=== PATIENT | male | born 1975 | race Caucasian/White ===

== ENCOUNTER → 2019-10-08 14:57 | Outpatient (BNVA) | payer MEDICARE, MEDICAID, SELFPAY | PROVIDERS: Family Provider Nurse Practitioner Family; PCP Nurse Practitioner Family; Visit Provider Specialist | DX: G40.119 Localization-related (focal) (partial) symptomatic epilepsy and epileptic syndromes with simple partial seizures, intractable, without status epilepticus (principal) | CPT/HCPCS: 99213 ==

== ENCOUNTER 2019-10-08 16:40 | Outpatient (CLI) | payer MEDICARE, MEDICAID, SELFPAY ==
[2019-10-08 17:03] LABS: Basophils # 0.1 10^3/uL (0.0-0.1); Basophils % 0.5 %; Eosinophils # 0.1 10^3/uL (0.0-0.8); Hematocrit 50.3 % (42.0-52.0); Hemoglobin 16.4 g/dL (11.7-16.6); Lymphocytes # 2.6 10^3/uL (0.8-4.8); Lymphocytes % 27.3 %; Mean Corpuscular HGB Conc 32.6 g/dL (30.0-36.0); Mean Corpuscular Volume 107.5 fL (80-94); Monocytes # 0.8 10^3/uL (0.2-0.9); Neutrophils # 5.9 10^3/uL (1.8-7.7); Neutrophils % 62.9 %; Nucleated Red Blood Cells % 0 %; Platelet Count 225 10^3/cmm (130-400); Red Blood Count 4.68 10^6/uL (4.1-5.3); Red Cell Distribution Width 12.1 % (12.1-15.1); White Blood Count 9.4 10^3/uL (4.0-10.0)
== END 2019-10-08 16:41 | disposition home or self-care (01) ==
LOC: LAB 16:41
PROVIDERS: Specialist; PCP Nurse Practitioner Family; Visit Provider Nurse Practitioner Family
DX: Z00.00 Encounter for general adult medical examination without abnormal findings (principal)
CPT/HCPCS: 85025

== ENCOUNTER 2019-10-10 13:12 | Outpatient (CLI) | payer MEDICARE, MEDICAID, SELFPAY ==
[2019-10-10 15:00] LABS: Alanine Aminotransferase 28 U/L (0-41); Thyroid Stimulating Hormone 1.09 uIU/mL (0.27-4.20); Vitamin B12 413 pg/mL (232-1245)
[2019-10-10 22:03] LABS: Carbamazepine Tegretol 9.3 ug/mL (4.0-12.0)
[2019-10-14 09:00] LABS: Methylmalonic Acid 152 nmol/L (87-318)
== END 2019-10-10 13:13 | disposition home or self-care (01) ==
LOC: LAB 13:12
PROVIDERS: PCP Nurse Practitioner Family; Visit Provider Specialist
DX: Z00.00 Encounter for general adult medical examination without abnormal findings (principal); R56.9 Unspecified convulsions
CPT/HCPCS: 36415; 80156; 82607; 83921; 84443; 84460

== ENCOUNTER → 2020-07-16 14:27 | Outpatient (BNVA) | payer MEDICARE, MEDICAID, SELFPAY | PROVIDERS: PCP Nurse Practitioner Family; Visit Provider Specialist | DX: G40.119 Localization-related (focal) (partial) symptomatic epilepsy and epileptic syndromes with simple partial seizures, intractable, without status epilepticus (principal); G40.909 Epilepsy, unspecified, not intractable, without status epilepticus; F17.210 Nicotine dependence, cigarettes, uncomplicated | CPT/HCPCS: 99214 ==

== ENCOUNTER → 2020-10-13 15:07 | Outpatient (BNVA) | payer MEDICARE, MEDICAID, SELFPAY | PROVIDERS: PCP Nurse Practitioner Family; Visit Provider Specialist | DX: G40.119 Localization-related (focal) (partial) symptomatic epilepsy and epileptic syndromes with simple partial seizures, intractable, without status epilepticus (principal); G40.909 Epilepsy, unspecified, not intractable, without status epilepticus; F20.0 Paranoid schizophrenia; F06.2 Psychotic disorder with delusions due to known physiological condition | CPT/HCPCS: 36415; 80053; 80156; 85025; 99214 ==

== ENCOUNTER 2020-10-13 16:12 | Outpatient (CLI) | payer MEDICARE, MEDICAID, SELFPAY ==
[2020-10-13 16:49] LABS: Basophils % 0.5 %; Eosinophils # 0.1 10^3/uL (0.0-0.8); Eosinophils % 1.2 %; Hematocrit 45.1 % (42.0-52.0); Hemoglobin 16.1 g/dL (11.7-16.6); Lymphocytes # 2.2 10^3/uL (0.8-4.8); Lymphocytes % 27.1 %; Mean Corpuscular HGB Conc 35.7 g/dL (30.0-36.0); Mean Corpuscular Hemoglobin 34.8 pg (28.0-34.0); Mean Corpuscular Volume 97.6 fL (80-94); Mean Platelet Volume 9.6 fL (7.4-10.4); Monocytes # 0.6 10^3/uL (0.2-0.9); Monocytes % 7.2 %; Neutrophils # 5.19 10^3/uL (1.8-7.7); Neutrophils % 63.6 %; Nucleated Red Blood Cells % 0 %; Platelet Count 177 10^3/cmm (130-400); Red Blood Count 4.62 10^6/uL (4.1-5.3); Red Cell Distribution Width 11.9 % (12.1-15.1); White Blood Count 8.2 10^3/uL (4.0-10.0)
[2020-10-13 17:13] LABS: Alanine Aminotransferase 22 U/L (0-41); Alkaline Phosphatase 36 IU/L (40-130); Anion Gap 13.5 (5-19); Aspartate Amino Transferase 21 U/L (0-40); Blood Urea Nitrogen 9 mg/dL (6-20); Calcium 8.6 mg/dL (8.5-10.5); Carbamazepine Tegretol 10.3 ug/mL (4.0-12.0); Carbon Dioxide 25 mmol/L (22-29); Chloride 104 mmol/L (98-107); Globulin 2.2 g/dL (1.3-4.6); Glucose 118 mg/dL (65-115); Osmolality Calculated 288 mOsm/kg (285-295); Potassium 3.5 mmol/L (3.5-5.1); Sodium 139 mmol/L (136-145); Total Bilirubin 0.3 mg/dL (0.15-1.2); Total Protein 6.2 g/dL (6.6-8.7)
== END 2020-10-13 16:13 | disposition home or self-care (01) ==
LOC: LAB 16:17
PROVIDERS: PCP Nurse Practitioner Family; Visit Provider Specialist
DX: G40.119 Localization-related (focal) (partial) symptomatic epilepsy and epileptic syndromes with simple partial seizures, intractable, without status epilepticus (principal)
CPT/HCPCS: 36415; 80053; 80156; 85025

== ENCOUNTER → 2021-04-06 14:36 | Outpatient (BNVA) | payer MEDICARE, MEDICAID, SELFPAY | PROVIDERS: PCP Nurse Practitioner Family; Visit Provider Specialist | DX: G40.119 Localization-related (focal) (partial) symptomatic epilepsy and epileptic syndromes with simple partial seizures, intractable, without status epilepticus (principal); F20.9 Schizophrenia, unspecified; F17.290 Nicotine dependence, other tobacco product, uncomplicated | CPT/HCPCS: 99214 ==

== ENCOUNTER → 2021-09-02 14:49 | Outpatient (BNVA) | payer MEDICARE, MEDICAID, SELFPAY | PROVIDERS: PCP Nurse Practitioner Family; Visit Provider Specialist | DX: G40.119 Localization-related (focal) (partial) symptomatic epilepsy and epileptic syndromes with simple partial seizures, intractable, without status epilepticus (principal); F20.9 Schizophrenia, unspecified | CPT/HCPCS: 99213; 99214 ==

== ENCOUNTER 2021-10-06 11:07 | Outpatient (CLI) | payer MEDICARE, MEDICAID, SELFPAY ==
--- NOTE | 2021-10-06 11:21 | XR_ITS ---
WS: [id number] Exam: XR thoracic spine 2V [id number] Date/Time of Exam: 10/06/2021 11:25 AM Reason For Exam: WEAKNESS OF BOTH LEGS Mild wedge deformity of T8 that might represent an old low-grade insufficiency compression fracture. No posterior displacement. No other sign of fracture. There is spondylosis. Increased kyphosis and os teopenia. No significant scoliosis. XR/XR thoracic spine 2V [id number] IMPRESSION: 1. Mild wedge deformity of T8 that may represent an old mild insufficiency comp ression fracture. 2. Degenerative changes and osteopenia.
--- NOTE | 2021-10-06 11:44 | XR_ITS ---
WS: [id number] Exam: XR lumbar spine 2-3V* [id number] Date/Time of Exam: 10/06/2021 11:44 AM Reason For Exam: WEAKNESS OF BOTH LEGS No fracture or dislocation noted. Mild degenerative disc narrowing at L1-2, L3-4 and L5-S1. Mild spon dylosis. Facet DJD at L4-5 and L5-S1. XR/XR lumbar spine 2-3V* [id number] IMPRESSION: 1. Degenerative changes as detailed above. 2. No fracture or malalignment.
== END 2021-10-06 11:08 | disposition home or self-care (01) ==
PROVIDERS: PCP Nurse Practitioner Family; Visit Provider Nurse Practitioner Family
DX: M47.894 Other spondylosis, thoracic region (principal); M47.896 Other spondylosis, lumbar region
CPT/HCPCS: 72070; 72100

== ENCOUNTER 2022-02-22 11:57 | Outpatient (CLI) | payer MEDICARE, MEDICAID, SELFPAY ==
--- NOTE | 2022-02-22 13:10 | XRR_ITS ---
PROCEDURE INFORMATION: Exam: XR Left Knee Exam date and time: 02/22/2022 1:11 PM Age: 46 years old Clinical indication: Pain; Patient HX: PT stated that he was cleaning his room and turned and heard his left knee pop several times. PT states that his knee has been hurting since. X 5 wks; Additional info: L knee joint pain TECHNIQUE: Imaging protocol: Radiologic exam of the Left knee. Views: 3 views. COMPARISON: No relevant prior studies available. FINDINGS: Bones/joints: Negative for acute bony abnormality Soft tissues: Normal. XR/XR knee LT 3V* [id number] IMPRESSION: No acute findings.
== END 2022-02-22 11:58 | disposition home or self-care (01) ==
LOC: RAD 12:04
PROVIDERS: PCP Family Medicine; Visit Provider Family Medicine
DX: M25.562 Pain in left knee (principal)
CPT/HCPCS: 73562

== ENCOUNTER → 2022-03-08 14:31 | Outpatient (BNVA) | payer MEDICARE, MEDICAID, SELFPAY | PROVIDERS: PCP Family Medicine; Visit Provider Specialist | DX: G40.119 Localization-related (focal) (partial) symptomatic epilepsy and epileptic syndromes with simple partial seizures, intractable, without status epilepticus (principal); F20.9 Schizophrenia, unspecified | CPT/HCPCS: 99213 ==

== ENCOUNTER 2023-01-03 11:08 | Outpatient (CLI) | payer MEDICARE, MEDICAID, SELFPAY ==
--- NOTE | 2023-01-03 11:18 | XR_ITS ---
WS: [id number] XR hip LT 2-3V wo/w pel* [id number] REASON FOR EXAM: PAIN IN LEFT HIP FINDINGS: No fracture or focal bone lesion. The joint space is relatively well preserved with mild subchondral sclerosis and osteophytosis of the acetabulum. There is a subtle convexity of the humeral head and neck junction superiorly which could predispose t o femoral acetabular impingement. This finding is equivocal. No soft tissue abnormality. IMPRESSION: Equivocal finding for femoral acetabular impingement. Otherwise, no significant abnormality.
== END 2023-01-03 11:09 | disposition home or self-care (01) ==
LOC: RAD 11:15
PROVIDERS: PCP Family Medicine; Visit Provider Family Medicine
DX: M25.852 Other specified joint disorders, left hip (principal); M25.552 Pain in left hip
CPT/HCPCS: 73502

== ENCOUNTER 2023-01-17 15:17 | Outpatient (CLI) | payer MEDICARE, MEDICAID, SELFPAY ==
--- NOTE | 2023-01-17 15:24 | XR_ITS ---
WS: [id number] DEXA (DUAL ENERGY X-RAY ABSORPTIOMETRY) Bone mineral density was performed using a [employer] machine. HISTORY: COLLAPSED VERTEBRA,LUMBAR REGION/FX W/ROUTINE HEALING COMPARISON: None available. Lumbar spine BMD (L1-L4): 1.572 g/cm2 T score: 2.9 Z score: 2.5 Total hip BMD: Left: 1.107 g/cm2. T score: 0.0 Z score: 0.0 Right: 1.059 g/cm2. T score: -0.3 Z score: -0.4 10 year probability of a major osteoporotic fracture is 3.8%. IMPRESSION: NORMAL BONE MINERAL DENSITY.
== END 2023-01-17 15:18 | disposition home or self-care (01) ==
LOC: RAD 15:19
PROVIDERS: PCP Family Medicine; Visit Provider Family Medicine
DX: M81.0 Age-related osteoporosis without current pathological fracture (principal)
CPT/HCPCS: 77080

== ENCOUNTER → 2023-03-08 13:35 | Outpatient (BNVA) | payer MEDICARE, MEDICAID, SELFPAY | PROVIDERS: Visit Provider Specialist | DX: G40.119 Localization-related (focal) (partial) symptomatic epilepsy and epileptic syndromes with simple partial seizures, intractable, without status epilepticus (principal) | CPT/HCPCS: 36415; 80053; 80156; 85025; 99213 ==

== ENCOUNTER 2023-03-14 13:23 | Emergency (ER) | payer MEDICARE, MEDICAID, SELFPAY ==
[2023-03-14 13:37] VITALS: BP 157/98; PULSE 68; RESP 15; TEMP 36.7; O2SAT 98; BMI 36.6
--- NOTE | 2023-03-14 13:49 | ED_ITS ---
HPI - Headache General: Chief Complaint: Headache Stated Complaint: head pain Time Seen by Provider: 03/14/23 13:48 Source: patient Mode of arrival: ambulatory Limitations: no limitations History of Present Illness: Patient is a 47-year-old male with a history of epilepsy here with presumedly his parents for complaints of head pressure/squeezing . Parents state that patient complained of a squeezing sensation to the vertex of his scalp a few days ago but stated it has subsided by that evening. Patient states yesterday he felt it again before subsiding. Unknown how long these episodes last-patient is not a very good historian. He does not describe it as pain but moreso as a squeezing pressure. States blood pressures have been good/normal. No visual changes. No trouble with articulation/ambulation. Normal mental status per parents. No neck pain/fevers. No recent injury/trauma. No new medications. Just had lab work performed by Dr. Valle a few days ago that were normal apart from Tegretol level that was scantly elevated at 13.0 (ref range 4-12). MD elicited complaint: headache Onset (ago): day(s) Quality & Timing: squeezing Exacerbating factors: none Relieving factors: nothing Associated symptoms: Deny chest pain, confusion, fever(s), lightheadedness, nausea, rash, syncope or vomiting Treatments prior to arrival: none Review of Systems Const: Denies: fever(s) or chills Eyes: Denies: change in vision, blurry vision, photophobia, floaters or seeing flashes Card: Denies: chest pain, palpitations, irregular heart rhythm, lightheadedness, syncope or dyspnea on exertion Resp: Denies: dyspnea, productive cough or pain on inspiration GI: Denies: abdominal pain, nausea, vomiting, heartburn or diarrhea : Denies: difficulty urinating or dysuria Musc: Denies: neck pain, back pain or joint pain Skin/Breast: Denies: rash Neuro: Reports: headache(s); Denies: numbness in extremities, weakness in extremities, sensory changes, lack of coordination, difficulty walking, frequent falls, dizziness, confusion, behavioral changes, Slurred speech present or difficulty communicating thoughts PFSH ED PFSH: Social History Smoking and tobacco/nicotine status: current every day tobacco/nicotine user cigarettes Packs smoked per day: 1 Alcohol intake: current Alcohol intake frequency: 0-2 Drinks per Day Substance/Drug Use: never Physical Exam Const: COMMON NORMALS: no acute distress, patient oriented x3, no limitations, alert and well nourished GENERAL APPEARANCE: cooperative NUTRITIONAL APPEARANCE: overweight ORIENTATION/CONSCIOUSNESS: Yes awake, Yes oriented to person, Yes oriented to place and Yes oriented to time HENMT: COMMON NORMALS: normocephalic and atraumatic HEAD & SCALP: normal to inspection, normocephalic and atraumatic FACE & SINUS: normal facial exam Eye: GENERAL EYE: appearance normal, both eyes and all related structures Neck/C-Spine: COMMON NORMALS: full ROM, no lymphadenopathy, supple and no meningeal signs Resp: COMMON NORMALS: normal respiratory effort and clear to auscultation bilaterally AUSCULTATION: clear to auscultation bilaterally Cardio: COMMON NORMALS: regular rate and regular rhythm RATE: regular rate RHYTHM: regular rhythm Back/Pelvis: COMMON NORMALS: thoracic and lumbar spine normal to inspection and no thoracic nor lumbar tenderness Extremity: COMMON NORMALS: normal to inspection GENERAL: Yes normal exam except as noted Neuro: RAJINDER COMA SCALE: document GCS findings Rajinder coma scale eye opening: Spontaneous [place] coma scale verbal response: Orientated [place] coma scale motor response: [place]bey commands Rajinder coma scale total score: 15 COMMON NORMALS: patient oriented x3 SENSORIUM/ORIENTATION: Yes alert, Yes oriented to person, Yes oriented to place and Yes oriented to time MENINGEAL SIGNS: Yes no meningeal signs Skin: COMMON NORMALS: no rashes or lesions noted GENERAL SKIN EXAM: no rashes or lesions noted Course Vital Signs: Vital signs: Vital Signs Temperature 98.0 F 03/14/23 13:37 Pulse Rate 67 03/14/23 14:59 Respiratory Rate 17 03/14/23 14:59 Blood Pressure 141/89 03/14/23 14:59 Pulse Oximetry 98 03/14/23 14:59 Oxygen Delivery Me thod Room Air 03/14/23 14:59 MDM - Headache Medical Decision Making Patient has no acute neurologic complaints/deficits on history or physical exam. Vitals stable. Just had labs performed outpatient so these were not repeated. CT head today benign. Stable cyst-unchanged since 2009. Patient will be allowed discharge. Recommend follow up with PCP and/or Dr. Valle if headaches continue. Return to ED precautions given. All radiology interpretation(s) finalized by discharge Discharge Plan Discharge Patient Disposition: Home Clinical Impression: Pressure in head Condition: Stable Prescriptions: No Action albuterol sulfate [Ventolin HFA] 90 mcg/actuation HFA aerosol inhaler 2 puff INHALATION Q4H PRN (Reason: Shortness Of Breath) simvastatin 20 mg tablet 20 mg PO BEDTIME celecoxib 200 mg capsule 200 mg PO BID PRN (Reason: Pain) carbamazepine 400 mg tablet extended release 12 hr 400 mg PO BID Qty: 180 4RF carbamazepine 200 mg tablet extended release 12 hr 200 mg PO BID Qty: 180 4RF Zyrtec 10 mg Tablet 10 mg PO BEDTIME lisinopril 10 mg tablet 10 mg PO BID Advil 200 mg Tablet 400 - 800 mg PO Q6H PRN (Reason: Pain) Discharge Orders: Discharge ED (Routine); Ordered 03/14/23 Ordered By: Divine Acuna Coding Level of Care Code ED Microbiological Analyst for Zayda Lloyd
[2023-03-14 13:51] VITALS: BP 151/90; PULSE 73; RESP 16; O2SAT 99
--- NOTE | 2023-03-14 13:52 | PC.PHAR ---
pt and pts family in room states pt takes care of his own medications-pt states he no longer takes aripiprazole 20mg daily ext shows last filled 08/31/22 30d/s or buspar 5mg tid ext doesnt show when last filled-pt states only taking the medications entered
--- NOTE | 2023-03-14 13:58 | CT_ITS ---
WS: [id number] CT HEAD TECHNIQUE: Noncontrast CT of the head obtained from the skullbase to the vertex. CLINICAL INFORMATION: pain/pressure COMPARISON: 2018 DLP: 1115.[address] scans at [facility] use at least one of these dose optimization techniques: automated e xposure control; mA and/or kV adjustment per patient size (includes targeted exams where dose is matc hed to clinical indication); or iterative reconstruction. FINDINGS: No evidence of intracranial hemorrhage or mass effect. Ventricular system and basal cisterns are [place] nt. Mild small vessel changes with mild parenchymal volume loss. Stable dystrophic calcification rasheeda g the falx. Stable benign arachnoid cyst overlying the LEFT cerebral convexity is unchanged as the pr ior MRI in 2009. This measures approximately 3.7 x 2.8 x 2.5 cm A few secretions in the RIGHT sphenoid sinus. Mild mucosal thickening in the ethmoid air cells. Masto id air cells are well aerated. Normal posterior nasopharynx. IMPRESSION: 1. No evidence of intracranial hemorrhage or mass effect. 2. Mild RIGHT sphenoid sinusitis. 3. Stable benign arachnoid cyst overlying the LEFT cerebral convexity is unchanged since the MRI 201 0 4. No acute intracranial findings.
[2023-03-14 14:59] VITALS: BP 141/89; PULSE 67; RESP 17; O2SAT 98
== END 2023-03-14 15:55 | disposition home or self-care (01) ==
PROVIDERS: Emergency Provider Physician Assistant; PCP Specialist
DX: R51.9 Headache, unspecified (principal); F17.210 Nicotine dependence, cigarettes, uncomplicated
CPT/HCPCS: 70450; 99284

== ENCOUNTER → 2024-01-25 12:06 | Outpatient (BNVA) | payer MEDICARE, MEDICAID, SELFPAY | PROVIDERS: PCP Specialist; Visit Provider Specialist | DX: G40.209 Localization-related (focal) (partial) symptomatic epilepsy and epileptic syndromes with complex partial seizures, not intractable, without status epilepticus (principal); G40.119 Localization-related (focal) (partial) symptomatic epilepsy and epileptic syndromes with simple partial seizures, intractable, without status epilepticus | CPT/HCPCS: 99213 ==

== ENCOUNTER → 2025-01-23 11:31 | Outpatient (BNVA) | payer MEDICARE, MEDICAID, SELFPAY | PROVIDERS: PCP Specialist; Visit Provider Specialist | DX: G40.119 Localization-related (focal) (partial) symptomatic epilepsy and epileptic syndromes with simple partial seizures, intractable, without status epilepticus (principal) | CPT/HCPCS: 36415; 80053; 80156; 85025; 99213 ==